=== PATIENT | female | born 1960 | race Caucasian/White ===

== ENCOUNTER 2018-07-29 12:04 | Inpatient (IN) | payer OTHER ==
[2018-07-29 12:48] VITALS: BMI 34.0
--- NOTE | 2018-07-29 13:27 | HP ---
COWS - Scale Resting Pulse: 0= [place] 80 or Below Sweatin= Chills/Flushing Restless Observation: 0= Sits Still Pupil Size: 0= Normal to Room Light Bone or Joint Aches: 2= Severe Diffuse Aches Runny Nose/ Eye Tearin= None GI Upset > 30mins: 2= Nausea/Diarrhea Tremor Observation: 0= None Yawning Observation: 0= None Anxiety or Irritability: 1=Feels Anxious/Irritable Goose Flesh Skin: 0=Smooth Skin COWS Score: 6 CIWA Score - Admission Criteria OASAS Guidelines: Admission for Medically Managed Detox: Requires at least one of the followin. CIWA greater than 12 2. Seizures within the past 24 hours 3. Delirium tremens within the past 24 hours 4. Hallucinations within the past 24 hours 5. Acute intervention needed for co occurring medical disorder 6. Acute intervention needed for co occurring psychiatric disorder 7. Severe withdrawal that cannot be handled at a lower level of care (continued vomiting, continued diarrhea, abnormal vital signs) requiring intravenous medication and/or fluids 8. Admission ROS [facility] - HPI Allergies/Adverse Reactions: Allergies Allergy/AdvReac Type Severity Reaction Status Date / Time tetracycline Allergy Severe Hives Verified 07/29/18 13:59 History of Present Illness: patient here requesting detox from opiate use ,reports 7 bags via inhalation , latest use yesterday at noon 4-5 bags, denies ivdu , denies other illicits . Current symptoms as above. Heroin use since age 25 , 12 years sobriety then after surgery relapsed ( 1 year ago ) / on MMTP in 1999 [facility] x 2 years, MDD 30 mg . utox + OPI, MTD reports tried tried to detox herself 1-2 weeks ago unsuccessfully , took illicit methadone . PMHx : denies PSHx : ambreen THR 09/24 OA 2009 , left face ( reportedly " some blood vessel issue and revision ") psych : depression Exam Limitations: No Limitations - Ebola screening Have you traveled outside of the country in the last 21 days: No Have you had contact with anyone from an Ebola affected area: No Have you been sick,other than usual withdrawal symptoms: No Do you have a fever: No - Review of Systems Constitutional: See HPI EENT: reports: See HPI, Other (glasses - myopia) Respiratory: reports: No Symptoms reported Cardiac: reports: No Symptoms Reported GI: reports: No Symptoms Reported : reports: No Symptoms Reported Musculoskeletal: reports: No Symptoms Reported Integumentary: reports: No Symptoms Reported Neuro: reports: No Symptoms reported Endocrine: reports: No Symptoms Reported Psychiatric: reports: Orientated x3 Patient History - Smoking Cessation Smoking history: Never smoked - Substances Abused Heroin Route: Inhalation Frequency: Daily Amount used: 7 bags Age of first use: 25 Date of Last Use: 07/29/18 Family Disease History - Family Disease History Family Disease History: Diabetes: Sister, Daughter, CA: Brother (esophageal CA d. 60 ), Other: Father (d), Mother (d unknown ) Admission Physical Exam [facility] - Vital Signs Vital Signs: Vital Signs - 24 hr 07/29/18 12:46 Temperature 96.2 F L Pulse Rate 71 Respiratory 20 Rate Blood Pressure 146/96 - Physical General Appearance: Yes: No Apparent Distress, Nourished, Appropriately Dressed HEENTM: Yes: EOMI, Hearing grossly Normal, Normocephalic, Normal Voice, Pharynx Normal Respiratory: Yes: Chest Non-Tender, Lungs Clear, Normal Breath Sounds Neck: Yes: Within Normal Limits Cardiology: Yes: Regular Rhythm, Regular Rate, S1, S2 Abdominal: Yes: Normal Bowel Sounds, Non Tender, Soft Genitourinary: Yes: Within Normal Limits Back: Yes: Normal Inspection Musculoskeletal: Yes: full range of Motion, Gait Steady Extremities: Yes: Normal Capillary Refill, Normal Inspection, Non-Tender Neurological: Yes: Fully Oriented, Alert, Motor Strength 5/5 Integumentary: Yes: Normal Color, Dry, Warm - Diagnostic (1) Opiate dependence Current Visit: Yes Status: Acute Qualifiers: Substance use status: uncomplicated Qualified Code(s): F11.20 - Opioid dependence, uncomplicated [facility] Breath Alcohol Content Breath Alcohol Content: 0 Urine Pregancy Test - Result Urine Test Results: Negative- NO Line Present Urine Drug Screen - Results Drug Screen Negative: No Urine Drug Screen Results: OPI-Opiates, MTD-Methadone
[2018-07-29] MEDS ORDERED: NICOTINE POLACRILEX 2 MG GUM BUC PRN (13:32)
[2018-07-29] MEDS ORDERED: MAGNESIUM HYDROX 2400MG/30ML ORAL SUSPENSION 30 ML CUP PO PRN (13:32)
[2018-07-29] MEDS ORDERED: IBUPROFEN 400 MG TABLET (FP) PO PRN (13:32)
[2018-07-29] MEDS ORDERED: P-EPHED 60MG/TRIPROLIDI 2.5MG TABLET PO PRN (13:32)
[2018-07-29] MEDS ORDERED: guaiFENesin/D-METHORPHAN HB 10 ML UNIT-DOSE CUPS PO PRN (13:32)
[2018-07-29] MEDS ORDERED: MAGNESIUM CITRATE 300 ML BOTTLE PO PRN (13:32)
[2018-07-29] MEDS ORDERED: MENTHOL/PHENOL 1 EACH UD MM PRN (13:32)
[2018-07-29] MEDS ORDERED: MAG HYDROX/AL HYDROX/SIMETH 30 ML UNIT-DOSE CUP PO PRN (13:32)
[2018-07-29] MEDS ORDERED: ACETAMINOPHEN 325 MG TABLET (FP) PO PRN (13:32)
[2018-07-29] MEDS ORDERED: METHADONE HCL 10 MG TABLET (FOR DETOX USE ONLY) PO ONE ×2 (15:00→23:00)
[2018-07-29] MEDS: METHOCARBAMOL 500 MG TABLET PO PRN (20:38)
[2018-07-29] MEDS ORDERED: MELATONIN 5 MG TABLETS PO PRN (22:00)
[2018-07-29] MEDS: THIAMINE HCL 100 MG TABLET (FP) PO SCH (22:45)
[2018-07-30] MEDS ORDERED: METHADONE HCL 10 MG TABLET (FOR DETOX USE ONLY) PO ONE ×2 (10:00)
[2018-07-30] MEDS ORDERED: METHADONE HCL 5 MG TABLET PO ONE (10:00)
[2018-07-30] MEDS: PRENATAL VITAMINS W/ FOLIC ACID TABLET (FP) PO SCH (10:33)
[2018-07-30 11:10] LABS: HEMATOCRIT 39.4 % (32.4-45.2); HEMOGLOBIN 12.7 GM/dL (10.7-15.3); MCH 30.9 pg (25.7-33.7); MCHC 32.3 g/dl (32.0-36.0); MEAN CELL VOLUME 95.6 fl (80-96); PLATELET COUNT 234 K/MM3 (134-434); RBC 4.12 M/mm3 (3.60-5.2); RDW 14.5 % (11.6-15.6); WHITE BLOOD COUNT 7.4 K/mm3 (4.0-10.0)
[2018-07-30] MEDS ORDERED: ONDANSETRON 8 MG TABLET (FP) PO PRN (11:32)
[2018-07-30 11:42] LABS: ALBUMIN 3.9 g/dl (3.4-5.0); ALK PHOS 95 U/L (45-117); ANION GAP 7 MMOL/L (8-16); BILIRUBIN,TOTAL 0.4 mg/dL (0.2-1); BLOOD UREA NITROGEN 11 mg/dL (7-18); CHLORIDE 102 mmol/L (98-107); CO2 29 mmol/L (21-32); CREATININE 0.6 mg/dL (0.55-1.3); GLUCOSE,RANDOM 95 mg/dL (74-106); POTASSIUM 4.6 mmol/L (3.5-5.1); SGOT/AST 13 U/L (15-37); SGPT/ALT 16 U/L (13-61); SODIUM 138 mmol/L (136-145); TOT PROT 7.1 g/dl (6.4-8.2)
--- NOTE | 2018-07-30 11:45 | PN ---
[facility] COWS - Scale Resting Pulse: 0= [place] 80 or Below Sweatin=Flushed/Facial Moisture Restless Observation: 1= Difficult to Sit Still Pupil Size: 0= Normal to Room Light Bone or Joint Aches: 1= Mild Discomfort Runny Nose/ Eye Tearin= Nasal Congestion GI Upset > 30mins: 2= Nausea/Diarrhea Tremor Observation of Outstretched Hands: 2= Slight Tremor Visible Yawning Observation: 1= 1-2x During Session Anxiety or Irritability: 2=Irritable/Anxious Goose Flesh Skin: 0=Smooth Skin COWS Score: 12 S Progress Note (SOAP) Subjective: Nausea, abdominal cramps, anxiety, irritability, restlessness Objective: 07/30/18 11:45 Vital Signs 07/30/18 07/30/18 07:31 09:36 Temperature 97.7 F 98.6 F Pulse Rate 60 76 Respiratory 18 16 Rate Blood Pressure 122/67 142/96 Laboratory Last Values WBC 7.4 K/mm3 (4.0-10.0) 07/30/18 05:35 RBC 4.12 M/mm3 (3.60-5.2) 07/30/18 05:35 Hgb 12.7 GM/dL (10.7-15.3) 07/30/18 05:35 Hct 39.4 % (32.4-45.2) 07/30/18 05:35 MCV 95.6 fl (80-96) 07/30/18 05:35 MCH 30.9 pg (25.7-33.7) 07/30/18 05:35 MCHC 32.3 g/dl (32.0-36.0) 07/30/18 05:35 RDW 14.5 % (11.6-15.6) 07/30/18 05:35 Plt Count 234 K/MM3 (134-434) 07/30/18 05:35 MPV 10.0 fl (7.5-11.1) 07/30/18 05:35 Sodium 138 mmol/L (136-145) 07/30/18 05:35 Potassium 4.6 mmol/L (3.5-5.1) 07/30/18 05:35 Chloride 102 mmol/L (98-107) 07/30/18 05:35 Carbon Dioxide 29 mmol/L (21-32) 07/30/18 05:35 Anion Gap 7 MMOL/L (8-16) L 07/30/18 05:35 BUN 11 mg/dL (7-18) 07/30/18 05:35 Creatinine 0.6 mg/dL (0.55-1.3) 07/30/18 05:35 Creat Clearance w eGFR > 60 (>60) 07/30/18 05:35 Random Glucose 95 mg/dL (74-106) 07/30/18 05:35 Calcium 9.0 mg/dL (8.5-10.1) 07/30/18 05:35 Total Bilirubin 0.4 mg/dL (0.2-1) 07/30/18 05:35 AST 13 U/L (15-37) L 07/30/18 05:35 ALT 16 U/L (13-61) 07/30/18 05:35 Alkaline Phosphatase 95 U/L (45-117) 07/30/18 05:35 Total Protein 7.1 g/dl (6.4-8.2) 07/30/18 05:35 Albumin 3.9 g/dl (3.4-5.0) 07/30/18 05:35 Labs and vital signs noted, no panic values Assessment: 07/30/18 11:45 Withdrawal sx Plan: Continue detox Start zofran 8mg PRN for N/V Hydroxyzine 50mg PO Q 6hrs for anxiety
[2018-07-30] MEDS: hydrOXYzine PAMOATE 50 MG CAPSULE (FP) PO PRN ×2 (13:08→22:34)
[2018-07-30] MEDS: THIAMINE HCL 100 MG TABLET (FP) PO SCH (22:34)
[2018-07-30] MEDS: METHOCARBAMOL 500 MG TABLET PO PRN (22:34)
[2018-07-31] MEDS: hydrOXYzine PAMOATE 50 MG CAPSULE (FP) PO PRN (06:01)
[2018-07-31] MEDS ORDERED: METHADONE HCL 5 MG TABLET (FOR DETOX USE ONLY) PO ONE ×2 (10:00)
[2018-07-31] MEDS: PRENATAL VITAMINS W/ FOLIC ACID TABLET (FP) PO SCH (10:19)
[2018-07-31] MEDS: METHOCARBAMOL 500 MG TABLET PO PRN (10:20)
--- NOTE | 2018-07-31 13:53 | PN ---
BHS COWS - Scale Resting Pulse: 0= [place] 80 or Below Sweatin= Chills/Flushing Restless Observation: 0= Sits Still Pupil Size: 1= Pupils >than Normal Bone or Joint Aches: 2= Severe Diffuse Aches Runny Nose/ Eye Tearin= Nasal Congestion GI Upset > 30mins: 2= Nausea/Diarrhea Tremor Observation of Outstretched Hands: 1= Tremor [place], Not Seen Yawning Observation: 1= 1-2x During Session Anxiety or Irritability: 1=Feels Anxious/Irritable Goose Flesh Skin: 0=Smooth Skin COWS Score: 10 S Progress Note (SOAP) Subjective: body aches anxiety restlessness irritable reported vistaril and muscle relaxant do not helping her restlessness discontinue muscle relaxant and vistaril begin valium 5 mg po rpn q8h for restlessness and anxiety and agiation Objective: 07/31/18 14:00 Vital Signs Temperature 97.3 F L 07/31/18 11:38 Pulse Rate 78 07/31/18 11:38 Respiratory Rate 18 07/31/18 11:38 Blood Pressure 146/88 07/31/18 11:38 O2 Sat by Pulse Oximetry (%) Laboratory Last Values WBC 7.4 K/mm3 (4.0-10.0) 07/30/18 05:35 RBC 4.12 M/mm3 (3.60-5.2) 07/30/18 05:35 Hgb 12.7 GM/dL (10.7-15.3) 07/30/18 05:35 Hct 39.4 % (32.4-45.2) 07/30/18 05:35 MCV 95.6 fl (80-96) 07/30/18 05:35 MCH 30.9 pg (25.7-33.7) 07/30/18 05:35 MCHC 32.3 g/dl (32.0-36.0) 07/30/18 05:35 RDW 14.5 % (11.6-15.6) 07/30/18 05:35 Plt Count 234 K/MM3 (134-434) 07/30/18 05:35 MPV 10.0 fl (7.5-11.1) 07/30/18 05:35 Sodium 138 mmol/L (136-145) 07/30/18 05:35 Potassium 4.6 mmol/L (3.5-5.1) 07/30/18 05:35 Chloride 102 mmol/L (98-107) 07/30/18 05:35 Carbon Dioxide 29 mmol/L (21-32) 07/30/18 05:35 Anion Gap 7 MMOL/L (8-16) L 07/30/18 05:35 BUN 11 mg/dL (7-18) 07/30/18 05:35 Creatinine 0.6 mg/dL (0.55-1.3) 07/30/18 05:35 Creat Clearance w eGFR > 60 (>60) 07/30/18 05:35 Random Glucose 95 mg/dL (74-106) 07/30/18 05:35 Calcium 9.0 mg/dL (8.5-10.1) 07/30/18 05:35 Total Bilirubin 0.4 mg/dL (0.2-1) 07/30/18 05:35 AST 13 U/L (15-37) L 07/30/18 05:35 ALT 16 U/L (13-61) 07/30/18 05:35 Alkaline Phosphatase 95 U/L (45-117) 07/30/18 05:35 Total Protein 7.1 g/dl (6.4-8.2) 07/30/18 05:35 Albumin 3.9 g/dl (3.4-5.0) 07/30/18 05:35 RPR Titer Nonreactive (NONREACTIVE) 07/30/18 05:35 lab noted Assessment: 07/31/18 14:00 withdrawal sx Plan: continue detox
[2018-07-31] MEDS: diazePAM 5 MG TABLET PO PRN (17:09)
[2018-07-31] MEDS: THIAMINE HCL 100 MG TABLET (FP) PO SCH (22:38)
[2018-08-01] MEDS ORDERED: METHADONE HCL 5 MG TABLET (FOR DETOX USE ONLY) PO ONE (06:00)
[2018-08-01] MEDS ORDERED: METHADONE HCL 10 MG TABLET (FOR DETOX USE ONLY) PO ONE (10:00)
[2018-08-01] MEDS: PRENATAL VITAMINS W/ FOLIC ACID TABLET (FP) PO SCH (10:09)
--- NOTE | 2018-08-01 10:46 | DS ---
[facility] Detox Discharge Summary Admission Date: 07/29/18 Discharge Date: 08/01/18 - History Present History: Opioid Dependence - Physical Exam Results Vital Signs: Vital Signs Temperature 98.7 F 08/01/18 09:49 Pulse Rate 101 H 08/01/18 09:49 Respiratory Rate 18 08/01/18 09:49 Blood Pressure 129/86 08/01/18 09:49 O2 Sat by Pulse Oximetry (%) - Treatment Hospital Course: Detox Protocol Followed, Detoxed Safely, Responded well, Discharged Condition Good, Rehab Referral Accepted - Medication Discharge Medications: Ambulatory Orders NK [No Known Home Medication] 07/29/18 - Diagnosis (1) Nicotine dependence Current Visit: Yes Status: Chronic Qualifiers: Nicotine product type: cigarettes Substance use status: uncomplicated Qualified Code(s): F17.210 - Nicotine dependence, cigarettes, uncomplicated (2) Opiate dependence Current Visit: Yes Status: Chronic Qualifiers: Substance use status: uncomplicated Qualified Code(s): F11.20 - Opioid dependence, uncomplicated (3) Opioid dependence with withdrawal Current Visit: Yes Status: Acute (4) Opioid-induced anxiety disorder Current Visit: Yes Status: Acute - AMA Did Patient Leave Against Medical Advice: No (referred to outpatient rehab )
[2018-08-01] MEDS: diazePAM 5 MG TABLET PO PRN (12:38)
[2018-08-01 14:14] VITALS: BP 106/76; PULSE 88; TEMP 98.2
[2018-08-02] MEDS ORDERED: METHADONE HCL 5 MG TABLET (FOR DETOX USE ONLY) PO ONE (06:00)
== END 2018-08-01 15:27 | disposition home or self-care (01) | DRG 897 ==
LOC: YASAS 12:04 → Y6N 14:54
PROC: HZ2ZZZZ Detoxification Services for Substance Abuse Treatment (ICD-10-PCS; principal; 2018-07-29)
DX: F11.23 Opioid dependence with withdrawal (principal); F11.288 Opioid dependence with other opioid-induced disorder; F19.280 Other psychoactive substance dependence with psychoactive substance-induced anxiety disorder; F17.210 Nicotine dependence, cigarettes, uncomplicated
CPT/HCPCS: 36415; 80053; 85027; 86593

== ENCOUNTER 2020-05-29 12:15 | Inpatient (IN) | payer OTHER ==
--- NOTE | 2020-05-29 12:44 | BHS.RME ---
Substance Use & Tx History - Substance Use History Heroin Substance amount: 2-3 bags Frequency of use: Daily Substance route: Inhalation (ex: sniffing or snorting) Date of Last Use: 05/29/20 (started at age 23) Nicotine Substance amount: 6-10 ciggs Frequency of use: Daily Substance route: Smoking Date of Last Use: 05/29/20 (started age 13) Physical/Psych/Mental Status - Behavior General Behavior: Increased activity (restlessness, agitation) Eye Contact: Normal - Cooperativeness Cooperativeness: Cooperative - Thinking Thought Processes: Tight, Logical, Goal Directed - Physical Health Problems Is patient presently having any pain?: No Does patient presently have any injuries (include location): No Does patient currently have a fever: No Is patient : No COWS - Scale Resting Pulse: 1= [place] 81-100 Sweatin= Chills/Flushing Restless Observation: 1= Difficult to Sit Still Pupil Size: 1= Pupils >than Normal Bone or Joint Aches: 4=Acute Joint/Muscle Pain Runny Nose/ Eye Tearin= Runny Nose/Eyes GI Upset > 30mins: 0= None Tremor Observation: 1= Tremor [place], Not Seen Yawning Observation: 0= None Anxiety or Irritability: 2=Irritable/Anxious Goose Flesh Skin: 0=Smooth Skin COWS Score: 13
[2020-05-29 13:14] VITALS: BMI 32.9
[2020-05-29] MEDS ORDERED: MENTHOL/PHENOL 1 EACH UD MM PRN (13:19)
[2020-05-29] MEDS ORDERED: IBUPROFEN 400 MG TABLET (FP) PO PRN (13:19)
[2020-05-29] MEDS ORDERED: MAGNESIUM HYDROX 2400MG/30ML ORAL SUSPENSION 30 ML CUP PO PRN (13:19)
[2020-05-29] MEDS ORDERED: MAGNESIUM CITRATE 300 ML BOTTLE PO PRN (13:19)
[2020-05-29] MEDS ORDERED: MAG HYDROX/AL HYDROX/SIMETH 30 ML UNIT-DOSE CUP PO PRN (13:19)
[2020-05-29] MEDS ORDERED: ONDANSETRON *ODT* 4 MG TABLET SL PRN (13:19)
[2020-05-29] MEDS ORDERED: METHADONE HCL 10 MG TABLET (FOR DETOX USE ONLY) PO ONE (13:19)
[2020-05-29] MEDS ORDERED: ACETAMINOPHEN 325 MG TABLET (FP) PO PRN ×2 (13:19)
[2020-05-29] MEDS ORDERED: BISMUTH SUBSALICYLATE 262 MG/15 ML BTL PO PRN (13:19)
[2020-05-29] MEDS ORDERED: METHOCARBAMOL 500 MG TABLET PO PRN (13:19)
[2020-05-29] MEDS ORDERED: cloNIDine HCL 0.1 MG TABLET PO PRN (13:19)
--- NOTE | 2020-05-29 13:19 | HP ---
COWS - Scale Resting Pulse: 1= [place] 81-100 Sweatin= Chills/Flushing Restless Observation: 1= Difficult to Sit Still Pupil Size: 1= Pupils >than Normal Bone or Joint Aches: 4=Acute Joint/Muscle Pain Runny Nose/ Eye Tearin= Runny Nose/Eyes GI Upset > 30mins: 0= None Tremor Observation: 1= Tremor [place], Not Seen Yawning Observation: 0= None Anxiety or Irritability: 2=Irritable/Anxious Goose Flesh Skin: 0=Smooth Skin COWS Score: 13 CIWA Score - Admission Criteria OASAS Guidelines: Admission for Medically Managed Detox: Requires at least one of the followin. CIWA greater than 12 2. Seizures within the past 24 hours 3. Delirium tremens within the past 24 hours 4. Hallucinations within the past 24 hours 5. Acute intervention needed for co occurring medical disorder 6. Acute intervention needed for co occurring psychiatric disorder 7. Severe withdrawal that cannot be handled at a lower level of care (continued vomiting, continued diarrhea, abnormal vital signs) requiring intravenous medication and/or fluids 8. Admitting History and Physical - Admission Chief Complaint: Ms. Lnadin is a 60 yo woman who presents to [facility] requesting detox admission for heroin use. History of Present Illness: Ms. Landin is a 60 yo woman who presents to [facility] requesting detox admission for heroin use. She a abstinent for 9 months and then relapsed in March of 2020 due to pandemic. PMH: costrocondritis, Hep C tx with interferon PSH: total hip replacement bilateral, left facial surgery: moved a blood vessle close to the facial nerve: subsequent loss of hearing on the left Psych: bipolar, MDD SOC: lives own apt in Legal: none Substance Use History Heroin Substance amount: 2-3 bags Frequency of use: Daily Substance route: Inhalation (ex: sniffing or snorting) Date of Last Use: 05/29/20 (started at age 23) OD x 1, 30 years ago. No narcan at home Nicotine Substance amount: 6-10 ciggs Frequency of use: Daily Substance route: Smoking Date of Last Use: 05/29/20 (started age 13) Methadone in 1999 Benzo: denies, thinks she may have had it in Rehab 7-10 days ago Sanjana Landin, 02/20/1958 Search Date: 05/29/2020 13:39:04 PM The Drug Utilization Report below displays all of the controlled substance prescriptions, if any, that your patient has filled in the last twelve months. The information displayed on this report is compiled from pharmacy submissions to the Department, and accurately reflects the information as submitted by the pharmacies. This report was requested by: [employer] [facility] | Reference #: [id number] There are no results for the search terms that you entered. History Source: Patient Limitations to Obtaining History: No Limitations - Smoking History Smoking history: Never smoked Have you smoked in the past 12 months: Yes Aproximately how many cigarettes per day: 10 Admission ROS [facility] - HPI Allergies/Adverse Reactions: Allergies Allergy/AdvReac Type Severity Reaction Status Date / Time tetracycline Allergy Severe Hives Verified 05/29/20 13:07 Exam Limitations: No Limitations - Ebola screening Have you traveled outside of the country in the last 21 days: No Have you been sick,other than usual withdrawal symptoms: No Do you have a fever: No - Review of Systems EENT: reports: Hearing Loss (left ear post surgery) Cardiac: reports: No Symptoms Reported GI: reports: Constipated (admitted 1-2 weeks ago with abdominal pain: told constipation, since resolved) Integumentary: reports: Other (dry skin left lateral foot) Endocrine: reports: No Symptoms Reported Hematology: reports: No Symptoms Reported Psychiatric: reports: Depressed Patient History - Patient Medical History Hx Asthma: No Hx Chronic Obstructive Pulmonary Disease (COPD): No Hx Cardiac Disorders: No Hx Hypertension: No Hx Seizures: No Hx Diabetes: No Hx Gastrointestinal Disorders: No Hx Genitourinary Disorders: No Hx Sexually Transmitted Disorders: No Hx Renal Disease (ESRD): No Hx Depression: Yes Hx Suicide Attempt: No Hx Schizophrenia: No - Patient Surgical History Past Surgical History: Yes Hx Neurologic Surgery: Yes (head r/t facial blood vessels problem in 2011) Hx Cataract Extraction: No Hx Cardiac Surgery: No Hx Lung Surgery: No Hx Breast Surgery: No Hx Breast Biopsy: No Hx Abdominal Surgery: No Hx Appendectomy: No Hx Cholecystectomy: No Hx Genitourinary Surgery: No Hx Section: No Hx Orthopedic Surgery: Yes (bilateral hip replacement in 2009) Anesthesia Reaction: No - PPD History Date: 07/31/18 - Smoking Cessation Smoking history: Never smoked Have you smoked in the past 12 months: Yes Aproximately how many cigarettes per day: 10 Hx Chewing Tobacco Use: No Initiated information on smoking cessation: Yes 'Breaking Loose' booklet given: 05/29/20 Admission Physical Exam [facility] - Vital Signs Vital Signs: Vital Signs - 24 hr 05/29/20 13:08 Temperature 97.3 F L Pulse Rate 86 Respiratory 18 Rate Blood Pressure 123/87 - Physical General Appearance: Yes: No Apparent Distress, Nourished HEENTM: Yes: EOMI, Hearing grossly Normal, Normocephalic, Normal Voice Respiratory: Yes: Lungs Clear, Normal Breath Sounds Neck: Yes: Within Normal Limits, Supple Breast: Yes: Breast Exam Deferred Cardiology: Yes: Regular Rhythm, Regular Rate Abdominal: Yes: Normal Bowel Sounds, Non Tender, Soft, Protuberent Genitourinary: Yes: Other (deferred) Back: Yes: Normal Inspection Musculoskeletal: Yes: full range of Motion Extremities: Yes: Normal Inspection, Other (tenderness left posterior popliteal fossa) Neurological: Yes: Alert, Normal Response Integumentary: Yes: Other (dry patch over left lateral foot ~3") - Diagnostic (1) Hepatitis C Current Visit: No Status: Chronic Comment: 1. treated (2) History of bilateral hip replacements Current Visit: No Status: Chronic (3) Opioid dependence with withdrawal Current Visit: Yes Status: Acute (4) Nicotine dependence Current Visit: Yes Status: Acute Qualifiers: Nicotine product type: cigarettes Substance use status: uncomplicated Qualified Code(s): F17.210 - Nicotine dependence, cigarettes, uncomplicated Cleared for Admission [facility] - Detox or Rehab [facility] Level of Care: Medically Managed Detox Regimen/Protocol: Methadone Breathalyzer - Breathalyzer Breathalyzer: 0 Urine Drug Screen - Test Device Lot number: [id number] Expiration date: 11/28/21 - Control Is test valid?: Yes - Results Drug screen NEGATIVE: No Urine drug screen results: FEN-Fentanyl, MOP-Opiates, BZO-Benzodiazepines Inpatient Rehab Admission - Rehab Decision to Admit Inpatient rehab admission?: No
[2020-05-29] MEDS ORDERED: hydrOXYzine PAMOATE 25 MG CAPSULE (FP) PO SCH (14:00)
[2020-05-29] MEDS: GABAPENTIN 100 MG CAPSULE PO SCH ×2 (14:36→22:41)
[2020-05-29] MEDS: NICOTINE 14 MG/24 HOURS TOPICAL PATCH TD SCH (14:37)
[2020-05-29] MEDS ORDERED: hydrOXYzine PAMOATE 25 MG CAPSULE (FP) PO PRN (14:51)
--- NOTE | 2020-05-29 14:51 | EKG ---
Test Reason : Blood Pressure : / mmHG Vent. Rate : 071 BPM Atrial Rate : 071 BPM P-R Int : 176 ms QRS Dur : 098 ms QT Int : 406 ms P-R-T Axes : 015 -63 005 degrees QTc Int : 441 ms NORMAL SINUS RHYTHM LEFT ANTERIOR FASCICULAR BLOCK ABNORMAL ECG NO PREVIOUS ECGS AVAILABLE Confirmed by Mckay Avila MD ([id number]) on 05/29/2020 2:50:38 PM Referred By: Confirmed By:Mckay Avila MD
[2020-05-29 18:48] LABS: HEMATOCRIT 37.5 % (32.4-45.2); HEMOGLOBIN 12.5 GM/dL (10.7-15.3); MCH 32.3 pg (25.7-33.7); MCHC 33.4 g/dl (32.0-36.0); MEAN CELL VOLUME 96.6 fl (80-96); MEAN PLT VOLUME 9.3 fl (7.5-11.1); PLATELET COUNT 235 K/MM3 (134-434); RBC 3.88 M/mm3 (3.60-5.2); WHITE BLOOD COUNT 7.5 K/mm3 (4.0-10.0)
[2020-05-29 18:56] LABS: ALBUMIN 3.7 g/dl (3.4-5.0); BILIRUBIN,TOTAL 0.2 mg/dL (0.2-1); BLOOD UREA NITROGEN 10.1 mg/dL (7-18); CALCIUM 9.1 mg/dL (8.5-10.1); CREATININE 0.6 mg/dL (0.55-1.3); POTASSIUM 4.1 mmol/L (3.5-5.1)
[2020-05-29] MEDS: MELATONIN 5 MG TABLETS PO SCH (22:42)
[2020-05-29] MEDS: THIAMINE HCL 100 MG TABLET (FP) PO SCH (22:42)
[2020-05-30] MEDS: GABAPENTIN 100 MG CAPSULE PO SCH ×3 (07:30→22:47)
[2020-05-30] MEDS ORDERED: METHADONE HCL 10 MG TABLET (FOR DETOX USE ONLY) ONE (09:15)
[2020-05-30] MEDS ORDERED: METHADONE HCL 5 MG TABLET (FOR DETOX USE ONLY) ONE (09:15)
[2020-05-30] MEDS ORDERED: METHADONE (DETOX) 20 MG, METHADONE (DETOX) 5 MG PO ONE (10:00)
[2020-05-30] MEDS: NICOTINE 14 MG/24 HOURS TOPICAL PATCH TD SCH (10:31)
[2020-05-30] MEDS: PRENATAL VITAMINS W/ FOLIC ACID TABLET (FP) PO SCH (10:31)
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
--- NOTE | 2020-05-30 12:48 | PN ---
[facility]HS COWS - Scale Resting Pulse: 0= [place] 80 or Below Sweatin= Chills/Flushing Restless Observation: 1= Difficult to Sit Still Pupil Size: 0= Normal to Room Light Bone or Joint Aches: 1= Mild Discomfort Runny Nose/ Eye Tearin= Nasal Congestion GI Upset > 30mins: 0= None Tremor Observation of Outstretched Hands: 1= Tremor [place], Not Seen Yawning Observation: 2= >3x During Session Anxiety or Irritability: 2=Irritable/Anxious Goose Flesh Skin: 0=Smooth Skin COWS Score: 9 BHS Progress Note (SOAP) Subjective: sweats shakes body aches interrupted sleep irritable Objective: 05/30/20 12:33 Vital Signs Temperature 97.8 F 05/30/20 09:06 Pulse Rate 68 05/30/20 09:06 Respiratory Rate 20 05/30/20 09:06 Blood Pressure 110/63 05/30/20 09:06 O2 Sat by Pulse Oximetry (%) 97 05/30/20 09:06 Laboratory Tests 05/29/20 05/29/20 13:40 13:40 WBC 7.5 RBC 3.88 Hgb 12.5 Hct 37.5 MCV 96.6 H MCH 32.3 MCHC 33.4 RDW 14.0 Plt Count 235 MPV 9.3 Sodium 139 Potassium 4.1 Chloride 105 Carbon Dioxide 27 Anion Gap 7 L BUN 10.1 Creatinine 0.6 Est GFR (CKD-EPI)AfAm 114.82 Est GFR (CKD-EPI)NonAf 99.07 Random Glucose 143 H Calcium 9.1 Total Bilirubin 0.2 AST 13 L ALT 21 Alkaline Phosphatase 90 Total Protein 7.0 Albumin 3.7 labs noted aaox3 ambulating no acute distress Assessment: 05/30/20 12:51 withdrawals Plan: continue detox
[2020-05-30] MEDS: QUEtiapine FUMARATE 25 MG TABLET PO SCH (22:47)
[2020-05-30] MEDS: THIAMINE HCL 100 MG TABLET (FP) PO SCH (22:48)
[2020-05-30] MEDS: MELATONIN 5 MG TABLETS PO SCH (22:49)
[2020-05-31] MEDS: GABAPENTIN 100 MG CAPSULE PO SCH ×3 (06:26→21:38)
[2020-05-31] MEDS ORDERED: MASKS NR ONE (08:42)
[2020-05-31] MEDS ORDERED: METHADONE HCL 10 MG TABLET (FOR DETOX USE ONLY) PO ONE (10:00)
[2020-05-31] MEDS: NICOTINE 14 MG/24 HOURS TOPICAL PATCH TD SCH (10:47)
[2020-05-31] MEDS: PRENATAL VITAMINS W/ FOLIC ACID TABLET (FP) PO SCH (11:16)
[2020-05-31] MEDS ORDERED: METHADONE (DETOX) 10 MG, METHADONE (DETOX) 5 MG PO ONE (11:51)
[2020-05-31] MEDS ORDERED: METHADONE HCL 5 MG TABLET (FOR DETOX USE ONLY) ONE (12:49)
[2020-05-31] MEDS ORDERED: METHADONE HCL 10 MG TABLET (FOR DETOX USE ONLY) ONE (12:50)
--- NOTE | 2020-05-31 14:08 | PN ---
[facility] COWS - Scale Resting Pulse: 0= [place] 80 or Below Sweatin= Chills/Flushing Restless Observation: 1= Difficult to Sit Still Pupil Size: 0= Normal to Room Light Bone or Joint Aches: 1= Mild Discomfort Runny Nose/ Eye Tearin= None GI Upset > 30mins: 0= None Tremor Observation of Outstretched Hands: 1= Tremor [place], Not Seen Yawning Observation: 0= None Anxiety or Irritability: 1=Feels Anxious/Irritable Goose Flesh Skin: 0=Smooth Skin COWS Score: 5 [facility] Progress Note (SOAP) Subjective: the methadone is too much I feel groggy and tired please reduce the dose Objective: 05/31/20 14:07 Vital Signs Temperature 97.3 F L 05/31/20 08:36 Pulse Rate 80 05/31/20 08:36 Respiratory Rate 16 05/31/20 08:36 Blood Pressure 125/79 05/31/20 08:36 O2 Sat by Pulse Oximetry (%) 99 05/31/20 08:36 Laboratory Tests 05/29/20 05/29/20 05/29/20 13:40 13:40 13:40 WBC 7.5 RBC 3.88 Hgb 12.5 Hct 37.5 MCV 96.6 H MCH 32.3 MCHC 33.4 RDW 14.0 Plt Count 235 MPV 9.3 Sodium 139 Potassium 4.1 Chloride 105 Carbon Dioxide 27 Anion Gap 7 L BUN 10.1 Creatinine 0.6 Est GFR (CKD-EPI)AfAm 114.82 Est GFR (CKD-EPI)NonAf 99.07 Random Glucose 143 H Calcium 9.1 Total Bilirubin 0.2 AST 13 L ALT 21 Alkaline Phosphatase 90 Total Protein 7.0 Albumin 3.7 Syphilis Serology Non-reactive COVID-19 ([facility]) HIV Ag/Ab Combo Qual 05/29/20 05/29/20 13:40 13:40 WBC RBC Hgb Hct MCV MCH MCHC RDW Plt Count MPV Sodium Potassium Chloride Carbon Dioxide Anion Gap BUN Creatinine Est GFR (CKD-EPI)AfAm Est GFR (CKD-EPI)NonAf Random Glucose Calcium Total Bilirubin AST ALT Alkaline Phosphatase Total Protein Albumin Syphilis Serology COVID-19 ([facility]) Not detected HIV Ag/Ab Combo Qual Negative labs noted aaox3 ambulating no acute distress Assessment: 05/31/20 14:07 withdrawals Plan: methadone dose reduced as per pt request continue detox as per modified dose
[2020-05-31] MEDS: NICOTINE POLACRILEX 2 MG GUM BUC PRN (16:51)
[2020-05-31] MEDS: THIAMINE HCL 100 MG TABLET (FP) PO SCH (21:38)
[2020-05-31] MEDS: QUEtiapine FUMARATE 25 MG TABLET PO SCH (21:38)
[2020-05-31] MEDS: MELATONIN 5 MG TABLETS PO SCH (21:38)
[2020-06-01] MEDS: GABAPENTIN 100 MG CAPSULE PO SCH ×3 (06:34→22:10)
[2020-06-01] MEDS ORDERED: METHADONE (DETOX) 10 MG, METHADONE (DETOX) 5 MG PO ONE (10:00)
[2020-06-01] MEDS ORDERED: METHADONE HCL 10 MG TABLET (FOR DETOX USE ONLY) PO ONE (10:00)
[2020-06-01] MEDS: NICOTINE 14 MG/24 HOURS TOPICAL PATCH TD SCH (10:20)
[2020-06-01] MEDS: PRENATAL VITAMINS W/ FOLIC ACID TABLET (FP) PO SCH (10:20)
[2020-06-01] MEDS: NICOTINE POLACRILEX 2 MG GUM BUC PRN (13:17)
--- NOTE | 2020-06-01 14:56 | PN ---
[facility] COWS - Scale Resting Pulse: 0= [place] 80 or Below Sweatin= No chills or Flushing Restless Observation: 0= Sits Still Pupil Size: 0= Normal to Room Light Bone or Joint Aches: 1= Mild Discomfort Runny Nose/ Eye Tearin= None GI Upset > 30mins: 0= None Tremor Observation of Outstretched Hands: 0= None Yawning Observation: 0= None Anxiety or Irritability: 1=Feels Anxious/Irritable Goose Flesh Skin: 0=Smooth Skin COWS Score: 2 [facility] Progress Note (SOAP) Subjective: Complaints of mild body aches and anxiety. Objective: 06/01/20 14:55 Vital Signs 06/01/20 06/01/20 08:46 12:30 Temperature 98.1 F 98.7 F Pulse Rate 74 76 Respiratory 16 18 Rate Blood Pressure 115/73 142/92 O2 Sat by Pulse 99 Oximetry (%) Laboratory Last Values WBC 7.5 K/mm3 (4.0-10.0) 05/29/20 13:40 RBC 3.88 M/mm3 (3.60-5.2) 05/29/20 13:40 Hgb 12.5 GM/dL (10.7-15.3) 05/29/20 13:40 Hct 37.5 % (32.4-45.2) 05/29/20 13:40 MCV 96.6 fl (80-96) H 05/29/20 13:40 MCH 32.3 pg (25.7-33.7) 05/29/20 13:40 MCHC 33.4 g/dl (32.0-36.0) 05/29/20 13:40 RDW 14.0 % (11.6-15.6) 05/29/20 13:40 Plt Count 235 K/MM3 (134-434) 05/29/20 13:40 MPV 9.3 fl (7.5-11.1) 05/29/20 13:40 Sodium 139 mmol/L (136-145) 05/29/20 13:40 Potassium 4.1 mmol/L (3.5-5.1) 05/29/20 13:40 Chloride 105 mmol/L (98-107) 05/29/20 13:40 Carbon Dioxide 27 mmol/L (21-32) 05/29/20 13:40 Anion Gap 7 MMOL/L (8-16) L 05/29/20 13:40 BUN 10.1 mg/dL (7-18) 05/29/20 13:40 Creatinine 0.6 mg/dL (0.55-1.3) 05/29/20 13:40 Est GFR (CKD-EPI)AfAm 114.82 05/29/20 13:40 Est GFR (CKD-EPI)NonAf 99.07 05/29/20 13:40 Random Glucose 143 mg/dL (74-106) H 05/29/20 13:40 Calcium 9.1 mg/dL (8.5-10.1) 05/29/20 13:40 Total Bilirubin 0.2 mg/dL (0.2-1) 05/29/20 13:40 AST 13 U/L (15-37) L 05/29/20 13:40 ALT 21 U/L (13-61) 05/29/20 13:40 Alkaline Phosphatase 90 U/L (45-117) 05/29/20 13:40 Total Protein 7.0 g/dl (6.4-8.2) 05/29/20 13:40 Albumin 3.7 g/dl (3.4-5.0) 05/29/20 13:40 Syphilis Serology Non-reactive (NONREACTIVE) 05/29/20 13:40 COVID-19 ([facility]) Not detected (Not Detected) 05/29/20 13:40 HIV Ag/Ab Combo Qual Negative (NEGATIVE) 05/29/20 13:40 Labs notes. Assessment: 06/01/20 14:55 Patient seen and examined, alert and oriented x3, in acute respiratory distress. Full ROM, ambulatory in the unit without assistance. Skin warm to touch without lesions. Mild withdrawal symptoms. Plan: Continue detox protocol. D/C in AM.
[2020-06-01] MEDS: THIAMINE HCL 100 MG TABLET (FP) PO SCH (22:09)
[2020-06-01] MEDS: QUEtiapine FUMARATE 25 MG TABLET PO SCH (22:09)
[2020-06-01] MEDS: MELATONIN 5 MG TABLETS PO SCH (22:10)
[2020-06-02] MEDS ORDERED: METHADONE HCL 5 MG TABLET (FOR DETOX USE ONLY) PO ONE (06:00)
[2020-06-02 06:12] VITALS: BP 120/67; PULSE 60; TEMP 96.8
[2020-06-02] MEDS: GABAPENTIN 100 MG CAPSULE PO SCH (06:26)
[2020-06-02] MEDS ORDERED: METHADONE HCL 10 MG TABLET (FOR DETOX USE ONLY) PO ONE (10:00)
--- NOTE | 2020-06-02 10:08 | DS ---
[facility] Detox Discharge Summary Admission Date: 05/29/20 Discharge Date: 06/02/20 - History Present History: Opioid Dependence Additional Comments: Detox protocol completed without any complications. Patient is alert and oriented x3, in no acute respiratory distress. Full ROM, ambulating in unit without assistance. Skin warm to touch without any lesion. Patient stable for discharge today, encouraged to followup with aftercare. Pertinent Past History: History of Hep C (treated), costrocondritis,THR, facial surgery, heroin and nicotine use disorder. - Physical Exam Results Vital Signs: Vital Signs Temperature 96.8 F L 06/02/20 06:11 Pulse Rate 60 06/02/20 06:11 Respiratory Rate 18 06/02/20 06:11 Blood Pressure 120/67 06/02/20 06:11 O2 Sat by Pulse Oximetry (%) 98 06/02/20 06:11 Vital Signs 06/02/20 06:11 Temperature 96.8 F L Pulse Rate 60 Respiratory 18 Rate Blood Pressure 120/67 O2 Sat by Pulse 98 Oximetry (%) Laboratory Last Values WBC 7.5 K/mm3 (4.0-10.0) 05/29/20 13:40 RBC 3.88 M/mm3 (3.60-5.2) 05/29/20 13:40 Hgb 12.5 GM/dL (10.7-15.3) 05/29/20 13:40 Hct 37.5 % (32.4-45.2) 05/29/20 13:40 MCV 96.6 fl (80-96) H 05/29/20 13:40 MCH 32.3 pg (25.7-33.7) 05/29/20 13:40 MCHC 33.4 g/dl (32.0-36.0) 05/29/20 13:40 RDW 14.0 % (11.6-15.6) 05/29/20 13:40 Plt Count 235 K/MM3 (134-434) 05/29/20 13:40 MPV 9.3 fl (7.5-11.1) 05/29/20 13:40 Sodium 139 mmol/L (136-145) 05/29/20 13:40 Potassium 4.1 mmol/L (3.5-5.1) 05/29/20 13:40 Chloride 105 mmol/L (98-107) 05/29/20 13:40 Carbon Dioxide 27 mmol/L (21-32) 05/29/20 13:40 Anion Gap 7 MMOL/L (8-16) L 05/29/20 13:40 BUN 10.1 mg/dL (7-18) 05/29/20 13:40 Creatinine 0.6 mg/dL (0.55-1.3) 05/29/20 13:40 Est GFR (CKD-EPI)AfAm 114.82 05/29/20 13:40 Est GFR (CKD-EPI)NonAf 99.07 05/29/20 13:40 Random Glucose 143 mg/dL (74-106) H 05/29/20 13:40 Calcium 9.1 mg/dL (8.5-10.1) 05/29/20 13:40 Total Bilirubin 0.2 mg/dL (0.2-1) 05/29/20 13:40 AST 13 U/L (15-37) L 05/29/20 13:40 ALT 21 U/L (13-61) 05/29/20 13:40 Alkaline Phosphatase 90 U/L (45-117) 05/29/20 13:40 Total Protein 7.0 g/dl (6.4-8.2) 05/29/20 13:40 Albumin 3.7 g/dl (3.4-5.0) 05/29/20 13:40 Syphilis Serology Non-reactive (NONREACTIVE) 05/29/20 13:40 COVID-19 ([facility]) Not detected (Not Detected) 05/29/20 13:40 HIV Ag/Ab Combo Qual Negative (NEGATIVE) 05/29/20 13:40 Labs noted. Pertinent Admission Physical Exam Findings: Withdrawal symptoms. - Treatment Hospital Course: Detox Protocol Followed, Detoxed Safely, Responded well, Discharged Condition Good - Medication Discharge Medications: Ambulatory Orders Gabapentin [Neurontin -] 100 mg PO Q8H 05/29/20 Quetiapine Fumarate [Seroquel -] 25 mg PO HS 05/29/20 - Diagnosis (1) Nicotine dependence Status: Chronic Qualifiers: Nicotine product type: cigarettes Substance use status: uncomplicated Qualified Code(s): F17.210 - Nicotine dependence, cigarettes, uncomplicated (2) Opioid dependence with withdrawal Status: Acute (3) History of bilateral hip replacements Status: Resolved - AMA Did Patient Leave Against Medical Advice: No
[2020-06-03] MEDS ORDERED: METHADONE HCL 5 MG TABLET (FOR DETOX USE ONLY) PO ONE (06:00)
== END 2020-06-02 08:50 | disposition home or self-care (01) | DRG 897 ==
LOC: YASAS 12:15 → Y6N 13:13
PROVIDERS: ADMIT Allergy & Immunology; ATTEND Allergy & Immunology
PROC: HZ2ZZZZ Detoxification Services for Substance Abuse Treatment (ICD-10-PCS; principal; 2020-05-29)
DX: F11.23 Opioid dependence with withdrawal (principal); F19.282 Other psychoactive substance dependence with psychoactive substance-induced sleep disorder; F17.210 Nicotine dependence, cigarettes, uncomplicated; F39 Unspecified mood [affective] disorder; H91.8X2 Other specified hearing loss, left ear; M94.0 Chondrocostal junction syndrome [Tietze]; Z96.643 Presence of artificial hip joint, bilateral; Z62.810 Personal history of physical and sexual abuse in childhood; Z91.410 Personal history of adult physical and sexual abuse; Z86.19 Personal history of other infectious and parasitic diseases; Z98.890 Other specified postprocedural states; Z88.8 Allergy status to other drugs, medicaments and biological substances
CPT/HCPCS: 36415; 80053; 85027; 86780; 87389; 93005; 93010; C9803; J0735; Q0162; U0003